=== PATIENT | male | born 1965 | race Caucasian/White ===

== ENCOUNTER 2021-08-12 06:45 | Observation (INO) ==
--- NOTE | 2021-07-15 08:43 | History & Physical Report ---
Date of Service July 15, 2021 date of surgery: 08/12/21 Procedure: Left Total Knee Arthroplasty Surgeon: Shashank Gabriel Assessment & Plan (1) Arthritis of knee, left: Plan: Further care discussed with patient and at this point in time has failed conservative measures and would like to proceed with a left total knee replacement. Plan on discharge will be home with home health physical therapy. DVT prophylaxis with TEDs, SCDs and will also place on aspirin 81 mg p.o. b.i.d. for a month postop. Patient will have follow up appointment in our office two weeks post op for staple/suture removal and re-evaluation. Patient otherwise has no other questions or concerns. The risks and benefits have been discussed including, but not limited to, risk of infection, nerve injury, stiffness, loss of motion, failure to improve, etc. Reasonable outcomes and options of treatment were discussed. An explanation of appropriate alternatives to the procedure that may be advantageous were discussed and their risks and benefits, as well as the risks and benefits of not proceeding with treatment. I offered to answer any additional inquiries concerning the treatment involved. All the patient's questions were answered. The patient is agreeable, understanding of the treatment plan and alternatives, and wishes to proceed with the treatment plan. History of Present Illness Chief Complaint: left knee pain Primary Care Provider: Simran Herrera PA-C Fran is a 55 year old male who complains of left knee pain, presents for pre- op evaluation prior to a left total knee replacement by Dr Gabriel at [facility]. He complains of pain, decreased range of motion and stiffness in his left knee. Currently the patient states that the symptoms are moderate-severe and rated as 8/10. The pain is described as aching, sharp and throbbing. His symptoms are aggravated by ascending stairs, daily activities, first steps while awake wa lking. Prior NSAIDs include Mobic and IBU. He has been treated with previous cortisone and visco injections in the past without much relief. he has also undergone previous left knee arthroscopy with partial medial meniscectomy, chondroplasty medial femoral condyle and removal medial synovial plica in 2017. Allergies Allergy/AdvReac Type Severity Reaction Status Date / Time No Known Allergies Allergy Unverified 02/21/21 14:49 Home Medications Medication Instructions Recorded Confirmed Type allopurinol 300 mg tablet 300 mg PO QAM 02/21/21 02/21/21 History cyclobenzaprine 10 mg tablet 10 mg PO TID PRN 02/21/21 02/21/21 History hydrocodone 5 mg-acetaminophen 325 1 tab PO Q6H PRN 02/21/21 02/21/21 History mg tablet lisinopril 20 mg tablet 20 mg PO QAM 02/21/21 02/21/21 History meloxicam 15 mg tablet 15 mg PO QAM 02/21/21 02/21/21 History pantoprazole 40 mg tablet,delayed 40 mg PO QAM 02/21/21 02/21/21 History release (Protonix) Past Med/Surg History Medical History Diverticulitis and had colon resection GERD (gastroesophageal reflux disease) Pt and report previously well managed with new onset of waking choking at night and when resting watching television, pt reports associated sensation of reflux, denies change in PPI Gout reports onset after previous surgery and hospitalization, last flare > months ago HTN (hypertension) well controlled, stable Osteoarthritis Sleep apnea not using device Surgical History History of colon resection History of nasal surgery septoplasty for deviated septum Hx of appendectomy Hx of arthroscopy of left knee Hx of arthroscopy of right knee x 3 Hx of colonoscopy Hx of melanoma excision right side of ribs Hx of surgical amputation of finger index finger on left hand injury with saw Social History Smoking Status: Never smoker Second Hand Exposure: No; Hx Alcohol Use: Yes Alcohol type: beer Hx Substance Use: No Preferred Language: Guamanian Communication Ability: Effective 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 Beliefs That Will Affect Care: None Current Living Situation: Spouse Feels Safe at Home: Yes Assistive Devices: None Review of Systems Review of Systems: All systems reviewed & are unremarkable except as noted in HPI & below Constitutional: no fever, no chills and no sweats Respiratory: no cough and no dyspnea Cardiovascular: no chest pain, no dyspnea and no orthopnea Gastrointestinal: no abdominal pain, no nausea and no vomiting Musculoskeletal: as per Subjective / HPI Physical Exam Physical Exam: HT: 5ft 11in WT: 124.kg Constitutional: WD/WN, vitals as above no acute distress Respiratory: normal respiratory effort, lungs clear to auscultation no respiratory distress, no labored breathing and does not use accessory muscles Cardiovascular: RRR, no murmur, no edema Gastrointestinal (Abdomen): normal bowel sounds, soft, nontender, no hepatosplenomegaly Musculoskeletal: Knee: + knee abnormal to inspection (LEFT KNEE- ), + effusion (+1 effusion), + surgical incision (well healed portals), + limited ROM of knee (ROM 0/3/110), + knee ROM with crepitation, + joint line tenderness (medial joint line) and + Sapna's sign positive; no deformity, no skin erythema, no ecchymosis, no valgus laxity, no varus laxity, anterior drawer test negative, Harlan's sign negative and pivot shift test negative Results & Data Results & Data ([facility]) Diagnostic Findings Left Knee X-ray: left knee series confirm degenerative changes to the left knee, greatest medial compartments and patellofemoral joint, showing joint space narrowing, osteophyte formation and subchondral sclerosis. no acute bony pathology noted.
--- NOTE | 2021-08-05 10:25 | Anesthesiology Consultation ---
Date of Service August 05, 2021 Assessment & Plan (1) Encounter for pre-operative examination: - COVID screening: Per assessment on 08/05: No known COVID-19 positive contacts or current COVID-19 related symptoms. Travel screen negative. Patient vaccinate d. Surgeon arranging preop COVID testing. Awaiting results. - PCP office visit (07/28/21): "Worsening left knee pain. To go for left TKA in near future. No issues with anesthesia. Not on any thinners. No underlying heart or lung conditions." -Heavy ETOH use: 6 beers/day Chart Review Chart Review: Acceptable Risk for Surgery and Patient NOT seen in Pre Admission Testing History Surgery Operation Date: 08/12/21 11:15 Proposed Procedures p Left Total Knee Arthroplasty - Shashank Gabriel DO Height/Weight Height: 5 ft 11 in Weight: 117.934 kg Allergies Allergy/AdvReac Type Severity Reaction Status Date / Time No Known Allergies Allergy Verified 08/05/21 08:26 Medications Home Medications Medication Instructions Recorded Confirmed Last Taken allopurinol 300 mg tablet 300 mg PO QAM 02/21/21 08/05/21 Unknown cyclobenzaprine 10 mg tablet 10 mg PO TID PRN 02/21/21 08/05/21 Unknown hydrocodone 5 mg-acetaminophen 325 1 tab PO Q6H PRN 02/21/21 08/05/21 Unknown mg tablet lisinopril 20 mg tablet 40 mg PO QAM 02/21/21 08/05/21 Unknown pantoprazole 40 mg tablet,delayed 40 mg PO BID 02/21/21 08/05/21 Unknown release (Protonix) labetalol 100 mg tablet 100 mg PO BID 08/05/21 08/05/21 Unknown nabumetone 500 mg tablet 500 mg PO BID 08/05/21 08/05/21 Unknown Past Medical History Medical History Cancer MELANOMA BACK EXCISION Chronic back pain Diverticulitis Hx/had colon resection GERD (gastroesophageal reflux disease) Gout reports onset after previous surgery and hospitalization, last flare > months ago HTN (hypertension) well controlled, stable Migraine Hx Osteoarthritis Sleep apnea CPAP (now compliant) Pt was seen at [facility] 02/2021 in which patient and mentioned new onset "choking" episodes at night. Patient had CPAP pressures adjusted which resulted in resolution of choking episodes. No recent issues/recurrence. Past Family History Family History Mother Family history of reaction to anesthesia PONV Past Surgical History Surgical History History of colon resection History of esophagogastroduodenoscopy (EGD) History of nasal surgery septoplasty for deviated septum Hx of appendectomy Hx of arthroscopy of left knee Hx of arthroscopy of right knee x 3 Hx of colonoscopy Hx of melanoma excision right side of ribs Hx of surgical amputation of finger index finger on left hand injury with saw Social History Smoking Status: Never smoker Do You Dip or Chew Tobacco: Yes (CHEWS 1 PER 2 DAYS) Hx Alcohol Use: Yes Alcohol type: beer alcohol intake frequency: 3 or more drinks per day Alcohol Intake Frequency Comment: 6 BEER A DAY Hx Substance Use: Yes substance use type: prescription drug Testing Laboratory Results 07/14/21 WBC 9.3 H/H 14.9/43.8 PLATELETS 261 SODIUM 136 POTASSIUM 4.2 CHLORIDE 98 CO2 24 BUN 13 CREATININE 0.96 GLUCOSE 92 HGBA1C 5.8% PT 12.7 PTT 29.2 INR 1.0 UA no bacteria Electrocardiogram Date: 02/24/21 Findings: + NSR @ (83) Chest X-Ray Date: 02/24/21 Findings: + NAD
[~2021-08-12 06:45] MED LIST: ACETAMINOPHEN 500 MG TAB PO SCH; BUPIVACAINE 0.5 % 5 MG/1 ML PF 10ML VIAL ONE; CeleBREX 200 MG CAP PO SCH; FAMOTIDINE 20 MG TAB PO SCH; GABAPENTIN 600 MG DOSE PO SCH; LR 500ML BOLUS, THEN 15ML/HR IV SCH; METOCLOPRAMIDE HCL 10 MG TABLET PO SCH; ROPIVACAINE 0.5% 5 MG/ML 30 ML VIAL ONE; ROPIVACAINE 0.5% HCL/PF 150 MG, BUPIVACAINE 0.75% MPF 20 ML, EPINEPHrine 30MG/30ML (OR ... INSTIL SCH; TRANEXAMIC ACID 1,000 MG **IV Intra-op IV SCH; TRANEXAMIC ACID 1,000 MG **IV Pre-op IV SCH; dexAMETHasone 4 MG TAB PO SCH; oxyCODONE HCL 10 MG TABCR (OxyCONTIN) PO SCH
[2021-08-12] MEDS ORDERED: MIDAZOLAM HCL 1 MG/ML 2ML VIAL ONE (07:38)
[2021-08-12] MEDS ORDERED: PROPOFOL IV EMULSION 10 MG/ML 20 ML VIAL IV ONE ×2 (07:38→10:51)
[2021-08-12] MEDS ORDERED: LIDOCAINE 2% 2 ML VIAL/AMP(20MG/ML) INFIL ONE (07:38)
[2021-08-12] MEDS ORDERED: fentaNYL citrate 100 MCG/2 ML VIAL ONE (07:38)
--- NOTE | 2021-08-12 08:32 | History & Physical Bridge Note ---
Date of Service August 12, 2021 History & Physical Bridge Note I have examined the patient, reviewed the History & Physical and in the interval since the performance of the History & Physical I have noted the following changes of clinical significance: no changes noted
[2021-08-12] MEDS ORDERED: fentaNYL citrate 100 MCG/2 ML VIAL IV PRN (08:44)
[2021-08-12] MEDS ORDERED: ONDANSETRON INJ 2 MG/ML 2 ML VIAL IV PRN ×2 (08:44→13:21)
[2021-08-12] MEDS ORDERED: ATROPINE SULFATE 0.1 MG/ML 10ML SYR IV PRN (08:44)
[2021-08-12] MEDS ORDERED: ePHEDrine sulfate 50 MG/ML AMP IV PRN (08:44)
[2021-08-12] MEDS ORDERED: ORTHO JOINT ANESTHETIC ONE (09:08)
--- NOTE | 2021-08-12 10:48 | Operative Report ---
Post Operative Report Pre & Post Diagnosis Operation Date: 08/12/21 09:05 Pre-Op Diagnosis: Left Knee Osteoarthritis Post-Op Diagnosis: Left Knee Osteoarthritis I identified the patient and participated in the time-out.: Yes Procedure Operation Date: 08/12/21 09:05 Actual Procedures p Left Total Knee Arthroplasty(Left) utilizing [employer] persona patient matched total knee arthroplasty size femur 12 standard tibia each medial constrained polyeleven medial constrained patella 34 oval Shashank Gabriel DO Surgeon Shashank Gabriel DO Brand Representative Enrrique NETTLES Estimated Blood Loss 5 Findings Consistent with Post-Op Diagnosis Patient presents with severe end-stage DJD left knee with varus alignment subchondral sclerosis marginal osteophytes eburnated [id number] moderate to large effusion Specimens Bone and cartilage Drains Medium bore Hemovac Anesthesia Type MAC Spinal Regional Complications none Disposition Accompanied Patient To Recovery: No Disposition: Recovery Room Indications Patient presents with severe end-stage tricompartmental degenerative joint disease of failed attempted conservative management including physical therapy anti-inflammatories relative rest activity modification corticosteroid injection viscosupplementation above intraoperative findings were noted Description of Procedure After proper prepping and draping of the left lower extremity anterior midline incision was made over the region of the extensor extensor mechanism after meticulous hemostasis was obtained and maintained in subcutaneous tissues a medial parapatellar incision was made The patella was subluxed lateralward the medial lateral gutter were cleaned from any hypertrophic synovitis and scar tissue of the distal femoral block was placed and the distal femoral osteotomy cut was made subsequently the chamfers anterior and posterior osteotomy cuts were made utilizing the 4-in-1 block the tibia was subsequently subluxed anteriorward medial and ateral meniscal remnants were excised in their entirety remnants of the anterior and posterior cruciate ligaments were excised in their entirety excellent exposure of the proximal tibia was obtained the tibial osteotomy guide was placed on the proximal tibial osteotomy cut was made once again the knee was irrigated with copious amounts of sterile saline solution the patella was subsequently everted lateralward thickened scar tissue around the patella was removed the patella was subsequently cut utilizing a freehand technique and was drilled prepared for final preparation and placement of patella socially flexion-extension gaps were checked and the equal and symmetric trials were placed to the appropriate femoral and tibial trials with poly-spacer being placed for equal flexion and extension gaps and full range of motion including extension to 0 and flexion to 140 the trial components after having been taken to recovery range of motion was subsequently removed meticulous hemostasis was obtained and maintained subsequently a knee block injection of joint cocktail including ropivacaine 0.5% 150 mg. Bupivacaine 0.5% epinephrine 1-200,030 mL's toradol 30 mg dexamethasone 4 mg ketamine 10 mg clonidine 100 micrograms normal saline solution 30 mg was infiltrated into the soft tissues of the posterior knee medial lateral gutters and periosteal synovium special attention was paid to protect neurovascular structures at all times subsequently trial components having been removed the knee was irrigated with sterile saline solution. debris was removed the proximal tibia was subsequently prepared and was made ready for the placement of the tibial component tibial component was also cemented and tamped into position the femoral component was subsequently placed and cemented in the position the patellar component was subsequently cemented in position because hemostasis once again obtained and maintained wound having been thoroughly irrigated with debridement and debridement lavage was performed as well as a medial parapatellar incision closed with #1 Vicryl in interrupted fashion subcutaneous was closed with #2 Vicryl skin was closed with skin clips. PA-C was necessary for prepping and drapping as well as wound closure of deep fascia Sub cutaneous tissue and skin and was necessary for the case. A sterile compressive dressing was placed patient was taken to recovery in stable condition of report dictated by Harvey I attest to the content of the Intraoperative Record and any orders documented therein. Any exceptions are noted below.Due to the complex nature of the procedure, the entire surgery was performed with the operational assistance of Priyanka NETTLES The culture media laboratory assistant, under direct supervision, was involved in the actual performance of all aspects of the surgical procedure including hemostasis, tissue retraction and incision, instrument management, patient positioning, and wound closure. I attest to the content of the Intraoperative Record and any orders documented therein. Any exceptions are noted below.
--- NOTE | 2021-08-12 12:01 | XRay Report ---
LEFT KNEE 2 VIEWS History: Left total knee arthroplasty. Degenerative arthritis. Postop. FINDINGS: The patient is status post a left total knee arthroplasty. The hardware is intact. No fract ure or dislocation. Surgical drains are in place. IMPRESSION: Left total knee arthroplasty. No evidence for hardware complication. ACT 112: Negative or not required by law. Electronically signed by: Nathaniel Aguilar M.D. 08/12/2021 12:00 PM
--- NOTE | 2021-08-12 12:16 | Anesthesiology Progress Note ---
Date of Service August 12, 2021 Anesthesia Post Procedure Vital Signs Vital Signs: Temp Pulse Pulse Resp BP Pulse Ox 08/12/21 12:05 97.5 F L 64 16 158/94 H 94 08/12/21 11:55 65 18 149/82 H 96 08/12/21 11:45 63 17 160/87 H 99 08/12/21 11:35 67 17 135/92 99 08/12/21 11:27 99.0 F 74 21 136/86 99 08/12/21 07:11 98.8 F 82 20 170/102 H 97 Pain Intensity Left Knee: Pain Intensity: 7 Transfer of Care Handoff Completed per policy Notes Mental Status: alert / awake / arousable and participated in evaluation Patient Amnestic to Procedure: Yes Nausea / Vomiting: adequately controlled Pain: adequately controlled Airway Patency, RR, SpO2: stable & adequate BP & HR: stable & adequate Hydration State: stable & adequate Neuraxial Anesthesia: was administered and sensory block is resolving Anesthetic Complications: no major complications apparent and Pt Satisfied with anesthetic care
[2021-08-12] MEDS ORDERED: bisacodyL 10 MG SUPP PR PRN (13:21)
[2021-08-12] MEDS ORDERED: MAGNESIUM HYDROXIDE SUSP 30 ML UDC PO PRN (13:21)
[2021-08-12] MEDS ORDERED: diphenhydrAMINE 50 MG/ML VIAL IV PRN (13:21)
[2021-08-12] MEDS ORDERED: NALOXONE HCL 0.4 MG/1 ML VIAL/CARP IV PRN (13:21)
[2021-08-12] MEDS: SODIUM CHLORIDE 0.9% 1000ML 1,000 ML IV SCH (14:08)
[2021-08-12] MEDS: HYDROCODONE/ACETAMOPHEN 5/325MG TAB PO PRN ×3 (14:09→22:00)
[2021-08-12] MEDS: ceFAZolin 2000MG 2,000 MG/15 ML SYR IV SCH (16:47)
[2021-08-12] MEDS: HYDROmorphone INJ 0.5 MG/0.5 ML SYR IV PRN (20:11)
[2021-08-12] MEDS ORDERED: SENNA 8.6 MG TAB PO SCH (21:00)
[2021-08-12] MEDS: LABETALOL HCL 100 MG TAB PO SCH (21:14)
[2021-08-12] MEDS: PANTOprazole 40 MG TAB PO SCH (21:14)
[2021-08-12] MEDS: ASPIRIN 81 MG ECTAB PO SCH (21:14)
[2021-08-12] MEDS: DOCUSATE SODIUM 100 MG CAP PO SCH (21:14)
[2021-08-13] MEDS: ceFAZolin 2000MG 2,000 MG/15 ML SYR IV SCH (01:10)
[2021-08-13] MEDS: HYDROmorphone INJ 0.5 MG/0.5 ML SYR IV PRN (01:20)
[2021-08-13] MEDS: SODIUM CHLORIDE 0.9% 1000ML 1,000 ML IV SCH (01:31)
[2021-08-13] MEDS: HYDROCODONE/ACETAMOPHEN 5/325MG TAB PO PRN ×2 (05:23→10:34)
[2021-08-13 05:51] LABS: Hemoglobin 11.9 g/dL (14.0-18.0); Mean Corpuscular Hemoglobin 31.8 pg (25-34); Mean Corpuscular Volume 90.9 fL (80-100); Mean Platelet Volume 10.1 fL (7.4-10.4); Platelet Count 242 K/uL (130-400); RDW Coefficient of Variation 12.7 % (11.5-14.5); Red Blood Count 3.74 M/uL (4.7-6.1); White Blood Count 13.83 K/uL (4.8-10.8)
[2021-08-13 06:28] LABS: BUN Creatinine Ratio 15.5 (10-20); Calcium 8.7 mg/dl (8.5-10.1); Creatinine Clr Calc Pharmacy 130.8 ml/min; Est GFR (African American) 113.4 ml/min; Est GFR (Non-African American) 97.9 ml/min; Potassium 4.1 mmol/L (3.5-5.1)
[2021-08-13] MEDS: DOCUSATE SODIUM 100 MG CAP PO SCH (07:59)
[2021-08-13] MEDS: ASPIRIN 81 MG ECTAB PO SCH (07:59)
[2021-08-13] MEDS: PANTOprazole 40 MG TAB PO SCH (07:59)
[2021-08-13] MEDS: LABETALOL HCL 100 MG TAB PO SCH (07:59)
--- NOTE | 2021-08-13 08:23 | Orthopedic Progress Note ---
Date of Service August 13, 2021 Assessment & Plan (1) Arthritis of knee, left: Plan: Postop day 1 status post left total knee arthroplasty. PT/OT protocols. Weightbearing as tolerated. DVT prophylaxis-aspirin p.o. twice daily, YUKI Sullivan. Pain management as written. DC planning-plan for discharge to home today. Admission and Anticipated Discharge Date Admission Date: August 12, 2021 Subjective Postop day 1 Patient lying in bed doing his bedside exercises. Minimal discomfort this morning. Pain controlled with pain meds. Denies shortness of breath, chest pain, lightheadedness. Physical Exam Physical Exam: Dressings are clean, dry, and intact. Calves are soft and nontender. Neurovascular is intact. Toes are mobile. He has good dorsiflexion and plantarflexion of the left foot. Hemovac drainage was 50 mL from the previous shift. Results & Data ([facility]) Vital Signs (Past 12 Hours) Vital Signs Temp Pulse Pulse Resp BP Pulse Ox 08/13/21 08:00 34.9 C L 88 20 154/98 H 100 08/13/21 03:15 36.5 C 84 16 145/83 H 97 08/12/21 23:02 36.7 C 93 H 20 135/87 94 Laboratory Results Laboratory Results WBC 13.83 K/uL (4.8-10.8) H 08/13/21 05:24 RBC 3.74 M/uL (4.7-6.1) L 08/13/21 05:24 Hgb 11.9 g/dL (14.0-18.0) L 08/13/21 05:24 Hct 34.0 % (42-52) L 08/13/21 05:24 MCV 90.9 fL (80-100) 08/13/21 05:24 MCH 31.8 pg (25-34) 08/13/21 05:24 MCHC 35.0 g/dL (32-36) 08/13/21 05:24 RDW Std Deviation 42.0 fL (36.4-46.3) 08/13/21 05:24 RDW Coeff of Abdoulaye 12.7 % (11.5-14.5) 08/13/21 05:24 Plt Count 242 K/uL (130-400) 08/13/21 05:24 MPV 10.1 fL (7.4-10.4) 08/13/21 05:24 Sodium 136 mmol/L (136-145) 08/13/21 05:24 Potassium 4.1 mmol/L (3.5-5.1) 08/13/21 05:24 Chloride 104 mmol/L (98-107) 08/13/21 05:24 Carbon Dioxide 22 mmol/L (21-32) 08/13/21 05:24 Anion Gap 10 (3-11) 08/13/21 05:24 BUN 13 mg/dl (6-23) 08/13/21 05:24 Creatinine 0.84 mg/dl (0.6-1.4) 08/13/21 05:24 Est Cr Clr Drug Dosing 130.8 ml/min 08/13/21 05:24 Est GFR ( Amer) 113.4 ml/min 08/13/21 05:24 Est GFR (Non-Af Amer) 97.9 ml/min 08/13/21 05:24 BUN/Creatinine Ratio 15.5 (10-20) 08/13/21 05:24 Glucose 138 mg/dl (70-99(Fasting)) H 08/13/21 05:24 Calcium 8.7 mg/dl (8.5-10.1) 08/13/21 05:24 SARS-CoV-2, RNA, NAAT NEGATIVE (NEGATIVE) 08/12/21 Unknown Blood Type B Positive 08/12/21 07:02 Antibody Screen NEGATIVE 08/12/21 07:02 Impressions Knee X-Ray 08/12/21 11:36 LEFT KNEE 2 VIEWS History: Left total knee arthroplasty. Degenerative arthritis. Postop. FINDINGS: The patient is status post a left total knee arthroplasty. The hardware is intact. No fracture or dislocation. Surgical drains are in place. IMPRESSION: Left total knee arthroplasty. No evidence for hardware complication. ACT 112: Negative or not required by law. Electronically signed by: Nathaniel Aguilar M.D. 08/12/2021 12:00 PM
[2021-08-13] MEDS ORDERED: lisinopril 40 MG TAB PO SCH (09:00)
[2021-08-13] MEDS ORDERED: MULTIVITAMIN TAB PO SCH (09:00)
[2021-08-13] MEDS ORDERED: allopurinoL 300 MG TAB PO SCH (09:00)
--- NOTE | 2021-08-14 14:30 | Discharge Summary ---
Date of Service August 14, 2021 Admission HPI Per Admitting Provider Fran is a 55 year old male who complains of left knee pain, presents for pre- op evaluation prior to a left total knee replacement by Dr Gabriel at [facility]. He complains of pain, decreased range of motion and stiffness in his left knee. Currently the patient states that the symptoms are moderate-severe and rated as 8/10. The pain is described as aching, sharp and throbbing. His symptoms are aggravated by ascending stairs, daily activities, first steps while awake walking. Prior NSAIDs include Mobic and IBU. He has been treated with previous cortisone and visco injections in the past without much relief. he has also undergone previous left knee arthroscopy with partial medial meniscectomy, chondroplasty medial femoral condyle and removal medial synovial plica in 2017. Admission Exam Per Admitting Provider Physical Exam: HT: 5ft 11in WT: 124.kg Constitutional: WD/WN, vitals as above no acute distress Respiratory: normal respiratory effort, lungs clear to auscultation no respiratory distress, no labored breathing and does not use accessory muscles Cardiovascular: RRR, no murmur, no edema Gastrointestinal (Abdomen): normal bowel sounds, soft, nontender, no hepatosplenomegaly Musculoskeletal: Knee: + knee abnormal to inspection (LEFT KNEE- ), + effusion (+1 effusion), + surgical incision (well healed portals), + limited ROM of knee (ROM 0/3/110), + knee ROM with crepitation, + joint line tenderness (medial joint line) and + Sapna's sign positive; no deformity, no skin erythema, no ecchymosis, no valgus laxity, no varus laxity, anterior drawer test negative, Harlan's sign negative and pivot shift test negative Principal Diagnosis Left knee osteoarthritis Discharge Data Allergies Allergy/AdvReac Type Severity Reaction Status Date / Time No Known Allergies Allergy Verified 08/12/21 07:05 Procedures Performed Operation Date: 08/12/21 09:05 Actual Procedures p Left Total Knee Arthroplasty(Left) - Shashank Gabriel DO Ordered Studies 08/12/21 05:00 US - OR guided needle placemen Routine Hospital Course (1) Arthritis of knee, left: Patient:FRAN HOLLINS Admit Date:08/12/21 MR#:[id number] Att Phy:Shashank Gabriel D.O. Acct ID:[id number] [facility] Phy:Simran Herrera PA-C Date:1965 [facility] Phy: Age:55 Location:3E Sex:M Room/Bed:E3-1 cc: ~ *NOTICE TO RECEIVING GREEN PARTY/AGENCY This information is strictly Confidential and protected under [place] law. [place] law prohibits you from making any further disclosure of this information unless further disclosure is expressly permitted by the written consent of the person to whom it pertains or is authorized by law. A general authorization for the release of medical or other information is not sufficient for this purpose. Hospital accepts no responsibility if the information is made available to any other person, INCLUDING THE PATIENT. Date of Service August 13, 2021 Assessment & Plan (1) Arthritis of knee, left: Plan: Postop day 1 status post left total knee arthroplasty. PT/OT protocols. Weightbearing as tolerated. DVT prophylaxis-aspirin p.o. twice daily, SCDsYUKI. Pain management as written. DC planning-plan for discharge to home today. Admission and Anticipated Discharge Date Admission Date: August 12, 2021 Subjective Postop day 1 Patient lying in bed doing his bedside exercises. Minimal discomfort this morning. Pain controlled with pain meds. Denies shortness of breath, chest pain, lightheadedness. Physical Exam Physical Exam: Dressings are clean, dry, and intact. Calves are soft and nontender. Neurovascular is intact. Toes are mobile. He has good dorsiflexion and plantarflexion of the left foot. Hemovac drainage was 50 mL from the previous shift. Results & Data ([facility]) Vital Signs (Past 12 Hours) Vital Signs Temp Pulse Pulse Resp BP Pulse Ox 08/13/21 08:00 34.9 C L 88 20 154/98 H 100 08/13/21 03:15 36.5 C 84 16 145/83 H 97 08/12/21 23:02 36.7 C 93 H 20 135/87 94 Laboratory Results Laboratory Results WBC 13.83 K/uL (4.8-10.8) H 08/13/21 05:24 RBC 3.74 M/uL (4.7-6.1) L 08/13/21 05:24 Hgb 11.9 g/dL (14.0-18.0) L 08/13/21 05:24 Hct 34.0 % (42-52) L 08/13/21 05:24 MCV 90.9 fL (80-100) 08/13/21 05:24 MCH 31.8 pg (25-34) 08/13/21 05:24 MCHC 35.0 g/dL (32-36) 08/13/21 05:24 RDW Std Deviation 42.0 fL (36.4-46.3) 08/13/21 05:24 RDW Coeff of Abdoulaye 12.7 % (11.5-14.5) 08/13/21 05:24 Plt Count 242 K/uL (130-400) 08/13/21 05:24 MPV 10.1 fL (7.4-10.4) 08/13/21 05:24 Sodium 136 mmol/L (136-145) 08/13/21 05:24 Potassium 4.1 mmol/L (3.5-5.1) 08/13/21 05:24 Chloride 104 mmol/L (98-107) 08/13/21 05:24 Carbon Dioxide 22 mmol/L (21-32) 08/13/21 05:24 Anion Gap 10 (3-11) 08/13/21 05:24 BUN 13 mg/dl (6-23) 08/13/21 05:24 Creatinine 0.84 mg/dl (0.6-1.4) 08/13/21 05:24 Est Cr Clr Drug Dosing 130.8 ml/min 08/13/21 05:24 Est GFR ( Amer) 113.4 ml/min 08/13/21 05:24 Est GFR (Non-Af Amer) 97.9 ml/min 08/13/21 05:24 BUN/Creatinine Ratio 15.5 (10-20) 08/13/21 05:24 Glucose 138 mg/dl (70-99(Fasting)) H 08/13/21 05:24 Calcium 8.7 mg/dl (8.5-10.1) 08/13/21 05:24 SARS-CoV-2, RNA, NAAT NEGATIVE (NEGATIVE) 08/12/21 Unknown Blood Type B Positive 08/12/21 07:02 Antibody Screen NEGATIVE 08/12/21 07:02 Impressions Knee X-Ray 08/12/21 11:36 LEFT KNEE 2 VIEWS History: Left total knee arthroplasty. Degenerative arthritis. Postop. FINDINGS: The patient is status post a left total knee arthroplasty. The hardware is intact. No fracture or dislocation. Surgical drains are in place. IMPRESSION: Left total knee arthroplasty. No evidence for hardware complication. ACT 112: Negative or not required by law. Electronically signed by: Nathaniel Aguilar M.D. 08/12/2021 12:00 PM Total Time Total Time Spent Total Time Spent (In Minutes): 5 Discharge Plan Discharge Items Patient Disposition: Home - Home Health Services Reason For Visit: Left Knee Osteoarthritis Discharge Diagnosis: Left Knee Osteoarthritis Activity: Per Instructions section Weightbearing: Left weightbearing Weightbearing Comment: as tolerated with walker Non-emergency contact: Surgeon Call non-emergency contact if: your pain is not controlled, your temperature is above 101.5, your wound has increased redness and your wound has increased drainage Follow-up/Referrals: Shashank Gabriel DO [Surgeon] - (Follow up in 14 days from the day of surgery for your first post operative check up) Simran Herrera PA-C [Primary Care Provider] - Diet: Regular Addtl Attending Provider Instructions: ACTIVITY RECOMMENDATIONS: SELF CARE INSTRUCTIONS AFTER TOTAL KNEE REPLACEMENT A. You may need to continue a physical therapy program after discharge from the hospital. There are several options available to you. Your doctor will assist you in selecting the best one for you. 1. An out-patient facility 2 to 3 times a week for therapy or home therapy. 2. Continue working on all exercises taught to you in the hospital. Your goals should be to increase bending of your knee to 90 degrees and beyond and to fully straighten your knee. B. You may progress at your own pace from walking with a walker or crutches to a cane; then to no assistive devices. C. Make walking a part of your daily routine. Be up as much as comfortable with rest periods throughout the day. Rest with leg elevation is very important. Use the ice wrap frequently for the first 3-4 weeks. D. There are no restrictions on activities. You may ride in a car, shop, participate in ldr rn and all social activities. E. Wear the long elastic stockings (YUKI hose) 20 hours a day for 2 weeks after surgery. They can be removed several times a day for laundering and for a bath. F. You may shower, no tub baths until cleared by your doctor. SPECIAL CARE INSTRUCTIONS: VERY IMPORTANT TO READ AND REVIEW A. There are a few signs you need to watch for after you are home. Call [facility] if you notice any of the followin. Increased severe knee pain. Some pain is expected especially when you exercise. 2. Increased swelling in your leg or knee; pain or swelling of the calf muscle in either lower leg. 3. Any fluid drainage from the incision. 4. Shortness of breath or chest pain. B. Please call [facility] at if you have any concerns or questions about your operation or recovery. The doctor or his nurse will return your call promptly. C. You must take antibiotics before dental work, bladder, bowel or other surgery. Your doctor will provide you with a permanent care to carry describing this precaution. IMPORTANT: * REMEMBER TO TAKE ASPIRIN, 81 MG, TWICE DAILY FOR 4 WEEKS UNLESS OTHERWISE DIRECTED. THIS IS YOUR BLOOD THINNER. * CALL IF INCREASED PAIN, REDNESS, DRAINAGE OR FEVER GREATER THAT 101. * WEAR YUKI HOSE 20 HOURS PER DAY FOR 2 WEEKS. * DONNA Dressing - This is a large suction dressing covering your incision. This will help pull any excess drainage from the wound and allow your incision to heal properly. You may shower with this if you can keep the unit outside of the shower. If any bleeding or leakage is noted please call your doctor's office. This will remain on your incision for 7 days and then should be removed. This can be done yourself or by the home nursing staff if applicable. The entire unit is disposable once removed. Once removed, keep incision clean and dry. If redness or drainage is noted, please call your surgeon. . FOLLOW UP VISIT: If appointment is not already scheduled: Please call [facility] to make a follow-up appointment for 2 weeks after your surgery at . Stand-Alone Forms: My eoSemi, Opioid Pain Management, Smoking Cessation Medications and DC Order Prescriptions: New aspirin 81 mg Tablet,Delayed Release (Dr/Ec) 81 mg PO BID 30 Days Qty: 60 RF: 0 polyethylene glycol 3350 [Miralax] 17 gram powder in packet 17 g PO DAILY PRN (Reason: constipation) Qty: 5 RF: 0 cefadroxil 500 mg capsule 500 mg PO BID Qty: 14 RF: 0 hydrocodone-acetaminophen 5-325 mg tablet 1 - 2 tab PO Q6H MDD 8 tabs PRN (Reason: pain) Qty: 30 RF: 0 Continued cyclobenzaprine 10 mg Tablet 10 mg PO TID PRN (Reason: Muscle Pain) RF: 0 lisinopril 20 mg Tablet 40 mg PO QAM RF: 0 pantoprazole [Protonix] 40 mg Tablet,Delayed Release (Dr/Ec) 40 mg PO BID RF: 0 allopurinol 300 mg Tablet 300 mg PO QAM RF: 0 labetalol 100 mg Tablet 100 mg PO BID RF: 0 Discontinued hydrocodone-acetaminophen 5-325 mg Tablet 1 tab PO Q6H PRN (Reason: Pain) RF: 0 nabumetone [Relafen] 500 mg Tablet 500 mg PO BID RF: 0 Discharge Orders: Discharge Order (Routine); Ordered 08/13/21 Ordered By: Enrrique Chávez Admission Data Admit Date/Time: 08/12/21 11:36 Attending Provider: Shashank Gabriel Admit Provider: Shashank Gabriel Primary Care Provider: Simran Herrera Other Providers: [facility],Home Health Other Interventions: Discharge Summary Assessment (RN) Last Done: 08/13/21 11:40
== END 2021-08-13 13:57 | disposition home health service (06) ==
LOC: ASU 06:45 → 3E 06:45

== ENCOUNTER 2022-02-03 09:41 | Inpatient (IN) ==
--- NOTE | 2021-12-02 12:07 | History & Physical Report ---
Date of Service December 02, 2021 date of surgery: 12/31/21 Procedure: Right Total Knee Arthroplasty, possible removal ACL screws Surgeon: Shashank Gabriel Assessment & Plan (1) Arthritis of right knee: Plan: Further care discussed with patient and at this point in time has failed conservative measures and would like to proceed with a right total knee replacement. Plan on discharge will be home with home health physical therapy. DVT prophylaxis with TEDs, SCDs and will also place on aspirin 81 mg p.o. b.i.d. for a month postop. Patient will have follow up appointment in our office two weeks post op for staple/suture removal and re-evaluation. Patient otherwise has no other questions or concerns. The risks and benefits have been discussed including, but not limited to, risk of infection, nerve injury, stiffness, loss of motion, failure to improve, etc. Reasonable outcomes and options of treatment were discussed. An explanation of appropriate alternatives to the procedure that may be advantageous were discussed and their risks and benefits, as well as the risks and benefits of not proceeding with treatment. I offered to answer any additional inquiries concerning the treatment involved. All the patient's questions were answered. The patient is agreeable, understanding of the treatment plan and alternatives, and wishes to proceed with the treatment plan. History of Present Illness Chief Complaint: Right knee pain Primary Care Provider: Simran Herrera PA-C Fran is a 56 year old male who complains of Right knee pain, presents for pre-op evaluation prior to a right total knee replacement by Dr Gabriel at [facility]. He complains of pain and stiffness in his right knee. Currently the patient stat es that the symptoms are moderate-severe and rated as 6/10. The pain is described as aching and sharp. His symptoms are aggravated by ascending stairs, daily activities, first steps while awake walking. Prior NSAIDs include Mobic and IBU. He has been treated with previous cortisone and visco injections in the past without much relief. has history of right knee scope x 3 with h/o ACL reconstruction. Allergies Allergy/AdvReac Type Severity Reaction Status Date / Time No Known Allergies Allergy Verified 08/12/21 07:05 Home Medications Medication Instructions Recorded Confirmed Type allopurinol 300 mg tablet 300 mg PO QAM 02/21/21 08/12/21 History cyclobenzaprine 10 mg tablet 10 mg PO TID PRN Muscle Pain 02/21/21 08/12/21 History lisinopril 20 mg tablet 40 mg PO QAM 02/21/21 08/12/21 History pantoprazole 40 mg tablet,delayed 40 mg PO BID 02/21/21 08/12/21 History release (Protonix) labetalol 100 mg tablet 100 mg PO BID 08/05/21 08/12/21 History cefadroxil 500 mg capsule 500 mg PO BID #14 caps 08/13/21 Rx hydrocodone 5 mg-acetaminophen 325 1 - 2 tab PO Q6H PRN pain #30 tabs 08/13/21 Rx mg tablet polyethylene glycol 3350 17 gram 17 g PO DAILY PRN constipation #5 08/13/21 Rx oral powder packet (Miralax) ea Past Med/Surg History Medical History Cancer MELANOMA BACK EXCISION Chronic back pain Diverticulitis Hx/had colon resection GERD (gastroesophageal reflux disease) Gout reports onset after previous surgery and hospitalization, last flare > months ago HTN (hypertension) well controlled, stable Migraine Hx Osteoarthritis Sleep apnea CPAP (now compliant) Pt was seen at [facility] 02/2021 in which patient and mentioned new onset "choking" episodes at night. Patient had CPAP pressures adjusted which resulted in resolution of choking episodes. No recent issues/recurrence. Surgical History History of colon resection History of esophagogastroduodenoscopy (EGD) History of nasal surgery septoplasty for deviated septum Hx of appendectomy Hx of arthroscopy of left knee Hx of arthroscopy of right knee x 3 Hx of colonoscopy Hx of melanoma excision right side of ribs Hx of surgical amputation of finger index finger on left hand injury with saw Family History Mother Family history of reaction to anesthesia PONV Social History Smoking Status: Never smoker Second Hand Exposure: No; Hx Alcohol Use: Yes Alcohol type: beer Hx Substance Use: Yes Preferred Language: Kyrgyz Communication Ability: Effective Color Repairer Required: No Beliefs That Will Affect Care: None Current Living Situation: Spouse current occupational status: employed current occupation: [employer] Feels Safe at Home: Yes Assistive Devices: CPAP and Walker Review of Systems Review of Systems: All systems reviewed & are unremarkable except as noted in HPI & below Constitutional: no fever, no chills and no sweats Respiratory: no cough and no dyspnea Cardiovascular: no chest pain, no dyspnea and no orthopnea Gastrointestinal: no abdominal pain, no nausea and no vomiting Musculoskeletal: as per Subjective / HPI Physical Exam Constitutional: WD/WN, vitals as above no acute distress Respiratory: normal respiratory effort, lungs clear to auscultation no respiratory distress, no labored breathing and does not use accessory muscles Cardiovascular: RRR, no murmur, no edema Gastrointestinal (Abdomen): normal bowel sounds, soft, nontender, no hepatosplenomegaly Musculoskeletal: Knee: + knee abnormal to inspection (RIGHT KNEE), + effusion (+1 effusion), + limited ROM of knee (ROM 0/3/110), + knee ROM with crepitation, + joint line tenderness (medial joint line) and + Sapna's sign positive; no deformity, no skin erythema, no ecchymosis, no valgus laxity, no varus laxity, anterior drawer test negative, Harlan's sign negative and pivot shift test negative Results & Data Results & Data ([facility]) Diagnostic Findings Right Knee X-ray: Right knee series showing advanced degenerative changes to the right knee, narrowing of the medial compartment and patello-femoral joint with patellar spurring noted, findings showing joint space narrowing of the medial compartment and patello-femoral joint, osteophyte formation and subchondral sclerosis noted. overall varus alignment. 2 metallic screws from prior ACL reconstruction. no acute bony pathology noted.
--- NOTE | 2021-12-24 14:27 | Anesthesiology Consultation ---
Date of Service December 24, 2021 Assessment & Plan (1) Encounter for pre-operative examination: Plan - abnormal echocardiogram: awaiting additional details/records from patient/PCP/[facility] Roberto Carlos regarding encounter prompting echocardiogram, will then forward to provider for pre-op optimization determination per discussion with Dr. Emmanuel. Message left requesting pt return call. - heavy ETOH use: 6 beers/day. - s/p L TKA 08/12/21: SAB at L3-L4 1 attempt + PNB. - Outpatient joint assessment: Patient is currently scheduled for inpatient pathway. If re-evaluated pending system levels during current pandemic/surgeon requests outpatient pathway, patient is NOT recommended candidate for outpatient joint program from anesthesia standpoint. - COVID screening: Per curriculum and assessment director on 12/22/2021: Travel screen negative, no known COVID-19 positive contacts or current COVID-19 related symptoms in past 2 weeks. Pt vaccinated. To surgeon's discretion if preop COVID testing needed. Chart Review Chart Review: Pending: Refer to Additional Notes / Consult section and Patient NOT seen in Pre Admission Testing History Surgery Operation Date: 12/31/21 10:30 Proposed Procedures p Right Total Knee Arthroplasty, Possible Removal of Anterior Cruciate Ligament Screws - Shashank Gabriel, Height/Weight Height: 5 ft 11 in Weight: 117.934 kg Allergies Allergy/AdvReac Type Severity Reaction Status Date / Time No Known Allergies Allergy Verified 12/22/21 15:35 Medications Home Medications Medication Instructions Recorded Confirmed Last Taken allopurinol 300 mg tablet 300 mg PO QAM 02/21/21 12/22/21 08/12/21 05:00 cyclobenzaprine 10 mg tablet 10 mg PO TID PRN Muscle Pain 02/21/21 12/22/21 08/11/21 13:00 pantoprazole 40 mg tablet,delayed 40 mg PO BID 02/21/21 12/22/21 08/12/21 05:00 release (Protonix) gabapentin 300 mg capsule 300 mg PO HS 12/22/21 12/22/21 Unknown lisinopril 40 mg tablet 40 mg PO QAM 12/22/21 12/22/21 Unknown montelukast 10 mg tablet 10 mg PO QPM 12/22/21 12/22/21 Unknown Past Medical History Medical History Chronic back pain Diverticulitis Hx/had colon resection GERD (gastroesophageal reflux disease) History of COVID-19 09/05/21>[facility] [facility] ONLY *RESOLVED/HOME TEST HTN (hypertension) Hx of gout Hx of migraines Osteoarthritis Sleep apnea CPAP Past Family History Family History Mother Family history of reaction to anesthesia PONV Past Surgical History Surgical History History of colon resection History of esophagogastroduodenoscopy (EGD) History of nasal surgery septoplasty for deviated septum History of total knee replacement LEFT TKA Hx of appendectomy Hx of arthroscopy of left knee Hx of arthroscopy of right knee x 3 Hx of colonoscopy Hx of melanoma excision right side of ribs Hx of melanoma excision Hx of surgical amputation of finger index finger on left hand injury with saw Social History Smoking Status: Never smoker tobacco type: smokeless tobacco Do You Dip or Chew Tobacco: Yes (ADVISED NPO) Hx Alcohol Use: Yes Alcohol type: beer alcohol intake frequency: 3 or more drinks per day Alcohol Intake Frequency Comment: 6 BEERS DAILY Hx Substance Use: Yes substance use type: does not use Testing Laboratory Results 12/15/2021 WBC: 5.7 H/H: 13/ PLATELETS: 250 SODIUM: 134 POTASSIUM: 4.3 CHLORIDE: 98 CO2: 23 BUN: 7 CREATININE: 0.8 GLUCOSE: 79 PT: 13 INR: 1 UA: yellow clear, specific gravity 1.005, negative for bacteria A1c: 6.1% Electrocardiogram Date: 02/24/21 NSR, rate 83 bpm Chest X-Ray Date: 02/24/21 No acute cardiopulmonary findings Echocardiogram Date: 12/04/21 Technically difficult study EF 55-60% Abnormal septal motion consistent with abnormal electrical activation Thickened aortic valve, JACLYN 3.5 cm2 and mean gradient 3.5 mmHg Mildly dilated aortic root Grade I diastolic dysfunction Dilated inferior vena cava, consistent with increased right atrial pressure
--- NOTE | 2022-01-01 07:44 | History & Physical Report ---
Date of Service January 01, 2022 date of surgery: 01/20/22 Procedure: Right Total Knee Arthroplasty, Possible Removal of Anterior Cruciate Ligament Screws Surgeon: Shashank Gabriel Assessment & Plan (1) Arthritis of right knee: Plan: Further care discussed with patient and at this point in time has failed conservative measures and would like to proceed with a right total knee replacement. Plan on discharge will be home with home health physical therapy. DVT prophylaxis with TEDs, SCDs and will also place on aspirin 81 mg p.o. b.i.d. for a month postop. Patient will have follow up appointment in our office two weeks post op for staple/suture removal and re-evaluation. Patient otherwise has no other questions or concerns. Surgery was recently postponed from 12/31 due to diagnosed with COVID. The risks and benefits have been discussed including, but not limited to, risk of infection, nerve injury, stiffness, loss of motion, failure to improve, etc. Reasonable outcomes and options of treatment were discussed. An explanation of appropriate alternatives to the procedure that may be advantageous were discussed and their risks and benefits, as well as the risks and benefits of not proceeding with treatment. I offered to answer any additional inquiries concerning the treatment involved. All the patient's questions were answered. The patient is agreeable, understanding of the treatment plan and alternatives, and wishes to proceed with the treatment plan. History of Present Illness Chief Complaint: right knee pain Primary Care Provider: Simran Herrera PA-C Fran is a 56 year old male who complains of Right knee pain, presents for pre-op evaluation prior to a right total knee replacement by Dr Gabriel at [facility]. He complains of pain and stiffness in his right knee. Currently the patient states that the symptoms are moderate-severe and rated as 6/10. The pain is described as aching and sharp. His symptoms are aggravated by ascending stairs, daily activities, first steps while awake walking. Prior NSAIDs include Mobic and IBU. He has been treated with previous cortisone and visco injections in the past without much relief. has history of right knee scope x 3 with h/o ACL reconstruction. Allergies Allergy/AdvReac Type Severity Reaction Status Date / Time No Known Allergies Allergy Verified 12/22/21 15:35 Home Medications Medication Instructions Recorded Confirmed Type allopurinol 300 mg tablet 300 mg PO QAM 02/21/21 12/22/21 History cyclobenzaprine 10 mg tablet 10 mg PO TID PRN Muscle Pain 02/21/21 12/22/21 History pantoprazole 40 mg tablet,delayed 40 mg PO BID 02/21/21 12/22/21 History release (Protonix) gabapentin 300 mg capsule 300 mg PO HS 12/22/21 12/22/21 History lisinopril 40 mg tablet 40 mg PO QAM 12/22/21 12/22/21 History montelukast 10 mg tablet 10 mg PO QPM 12/22/21 12/22/21 History Past Med/Surg History Medical History Chronic back pain Diverticulitis Hx/had colon resection GERD (gastroesophageal reflux disease) History of COVID-19 09/05/21>RUNNY NOSE ONLY *RESOLVED/HOME TEST HTN (hypertension) Hx of gout Hx of migraines Osteoarthritis Sleep apnea CPAP Surgical History History of colon resection History of esophagogastroduodenoscopy (EGD) History of nasal surgery septoplasty for deviated septum History of total knee replacement LEFT TKA Hx of appendectomy Hx of arthroscopy of left knee Hx of arthroscopy of right knee x 3 Hx of colonoscopy Hx of melanoma excision right side of ribs Hx of melanoma excision Hx of surgical amputation of finger index finger on left hand injury with saw Family History Mother Family history of reaction to anesthesia PONV Social History Smoking Status: Never smoker Second Hand Exposure: No; Hx Alcohol Use: Yes Alcohol type: beer Hx Substance Use: Yes Preferred Language: Icelandic Communication Ability: Effective 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 Beliefs That Will Affect Care: None Current Living Situation: Spouse current occupational status: employed current occupation: [employer] Feels Safe at Home: Yes Assistive Devices: CPAP Review of Systems Constitutional: no fever, no chills and no sweats Respiratory: no cough and no dyspnea Cardiovascular: no chest pain, no dyspnea and no orthopnea Gastrointestinal: no abdominal pain, no nausea and no vomiting Musculoskeletal: as per Subjective / HPI Physical Exam Constitutional: WD/WN, vitals as above no acute distress Respiratory: normal respiratory effort, lungs clear to auscultation no respiratory distress, no labored breathing and does not use accessory muscles Cardiovascular: RRR, no murmur, no edema Gastrointestinal (Abdomen): normal bowel sounds, soft, nontender, no hepatosplenomegaly Musculoskeletal: Knee: + knee abnormal to inspection (RIGHT KNEE), + effusion (+1 effusion), + limited ROM of knee (ROM 0/3/110), + knee ROM with crepitation, + joint line tenderness (medial joint line) and + Sapna's sign positive; no deformity, no skin erythema, no ecchymosis, no valgus laxity, no varus laxity, anterior drawer test negative, Harlan's sign negative and pivot shift test negative Results & Data Results & Data ([facility]) Diagnostic Findings Right Knee X-ray: Right knee series showing advanced degenerative changes to the right knee, narrowing of the medial compartment and patello-femoral joint with patellar spurring noted, findings showing joint space narrowing of the medial compartment and patello-femoral joint, osteophyte formation and subchondral sclerosis noted. overall varus alignment. 2 metallic screws from prior ACL reconstruction. no acute bony pathology noted.
--- NOTE | 2022-01-23 08:14 | History & Physical Report ---
Date of Service January 23, 2022 date of surgery: 02/03/22 Procedure: Right Total Knee Arthroplasty, Possible Removal of Anterior Cruciate Ligament Screws Surgeon: Shashank Gabriel Assessment & Plan (1) Arthritis of right knee: Plan: Further care discussed with patient and at this point in time has failed conservative measures and would like to proceed with a right total knee replacement. Plan on discharge will be home with home health physical therapy. DVT prophylaxis with TEDs, SCDs and will also place on aspirin 81 mg p.o. b.i.d. for a month postop. Patient will have follow up appointment in our office two weeks post op for staple/suture removal and re-evaluation. Patient otherwise has no other questions or concerns. Surgery was recently postponed from 12/31 due to diagnosed with COVID. The risks and benefits have been discussed including, but not limited to, risk of infection, nerve injury, stiffness, loss of motion, failure to improve, etc. Reasonable outcomes and options of treatment were discussed. An explanation of appropriate alternatives to the procedure that may be advantageous were discussed and their risks and benefits, as well as the risks and benefits of not proceeding with treatment. I offered to answer any additional inquiries concerning the treatment involved. All the patient's questions were answered. The patient is agreeable, understanding of the treatment plan and alternatives, and wishes to proceed with the treatment plan. History of Present Illness Chief Complaint: right knee pain Primary Care Provider: Simran Herrera PA-C Fran is a 56 year old male who complains of Right knee pain, presents for pre-op evaluation prior to a right total knee replacement by Dr Gabriel at [facility]. He complains of pain and stiffness in his right knee. Currently the patient states that the symptoms are moderate-severe and rated as 6/10. The pain is described as aching and sharp. His symptoms are aggravated by ascending stairs, daily activities, first steps while awake walking. Prior NSAIDs include Mobic and IBU. He has been treated with previous cortisone and visco injections in the past without much relief. has history of right knee scope x 3 with h/o ACL reconstruction. Allergies Allergy/AdvReac Type Severity Reaction Status Date / Time No Known Allergies Allergy Verified 12/22/21 15:35 Home Medications Medication Instructions Recorded Confirmed Type allopurinol 300 mg tablet 300 mg PO QAM 02/21/21 12/22/21 History cyclobenzaprine 10 mg tablet 10 mg PO TID PRN Muscle Pain 02/21/21 12/22/21 History pantoprazole 40 mg tablet,delayed 40 mg PO BID 02/21/21 12/22/21 History release (Protonix) gabapentin 300 mg capsule 300 mg PO HS 12/22/21 12/22/21 History lisinopril 40 mg tablet 40 mg PO QAM 12/22/21 12/22/21 History montelukast 10 mg tablet 10 mg PO QPM 12/22/21 12/22/21 History Past Med/Surg History Medical History Chronic back pain Diverticulitis Hx/had colon resection GERD (gastroesophageal reflux disease) History of COVID-19 09/05/21>RUNNY NOSE ONLY *RESOLVED/HOME TEST HTN (hypertension) Hx of gout Hx of migraines Osteoarthritis Sleep apnea CPAP Surgical History History of colon resection History of esophagogastroduodenoscopy (EGD) History of nasal surgery septoplasty for deviated septum History of total knee replacement LEFT TKA Hx of appendectomy Hx of arthroscopy of left knee Hx of arthroscopy of right knee x 3 Hx of colonoscopy Hx of melanoma excision right side of ribs Hx of melanoma excision Hx of surgical amputation of finger index finger on left hand injury with saw Family History Mother Family history of reaction to anesthesia PONV Social History Smoking Status: Never smoker Second Hand Exposure: No; Do You Dip or Chew Tobacco: Yes (ADVISED NPO); Hx Alcohol Use: Yes Alcohol type: beer Hx Substance Use: Yes Preferred Language: Bulgarian Communication Ability: Effective Humane Officer Required: No Beliefs That Will Affect Care: None Current Living Situation: Spouse current occupational status: employed current occupation: [employer] Feels Safe at Home: Yes Safety Concerns: Feels Safe At This Time Assistive Devices: CPAP Review of Systems Constitutional: no fever, no chills and no sweats Respiratory: no cough and no dyspnea Cardiovascular: no chest pain, no dyspnea and no orthopnea Gastrointestinal: no abdominal pain, no nausea and no vomiting Musculoskeletal: as per Subjective / HPI Physical Exam Physical Exam: HT: 5ft 11in WT: 124.kg Constitutional: WD/WN, vitals as above no acute distress Respiratory: normal respiratory effort, lungs clear to auscultation no respiratory distress, no labored breathing and does not use accessory muscles Cardiovascular: RRR, no murmur, no edema Gastrointestinal (Abdomen): normal bowel sounds, soft, nontender, no hepatosplenomegaly Musculoskeletal: Knee: + knee abnormal to inspection (RIGHT KNEE), + effusion (+1 effusion), + limited ROM of knee (ROM 0/3/110), + knee ROM with crepitation, + joint line tenderness (medial joint line) and + Sapna's sign positive; no deformity, no skin erythema, no ecchymosis, no valgus laxity, no varus laxity, anterior drawer test negative, Harlan's sign negative and pivot shift test negative Results & Data Results & Data ([facility]) Diagnostic Findings Right Knee X-ray: Right knee series showing advanced degenerative changes to the right knee, narrowing of the medial compartment and patello-femoral joint with patellar spurring noted, findings showing joint space narrowing of the medial compartment and patello-femoral joint, osteophyte formation and subchondral sclerosis noted. overall varus alignment. 2 metallic screws from prior ACL reconstruction. no acute bony pathology noted.
[~2022-02-03 09:41] MED LIST changes: +EPINEPHrine INJ 1 MG/ML AMP ONE; +ROPIVACAINE 0.5% HCL/PF 150 MG, BUPIVACAINE 0.75% MPF 20 ML, EPINEPHrine 30MG/30ML (OR ... INFIL SCH; -ROPIVACAINE 0.5% HCL/PF 150 MG, BUPIVACAINE 0.75% MPF 20 ML, EPINEPHrine 30MG/30ML (OR ... INSTIL SCH; -oxyCODONE HCL 10 MG TABCR (OxyCONTIN) PO SCH
[2022-02-03] MEDS ORDERED: LACTATED RINGER'S 1,000 ML IV PRN (10:00)
[2022-02-03] MEDS ORDERED: fentaNYL citrate 100 MCG/2 ML VIAL ONE (10:17)
[2022-02-03] MEDS ORDERED: MIDAZOLAM HCL 1 MG/ML 2ML VIAL ONE ×3 (10:17→12:26)
[2022-02-03] MEDS ORDERED: LIDOCAINE 2% 2 ML VIAL/AMP(20MG/ML) INFIL ONE (10:27)
[2022-02-03] MEDS ORDERED: PROPOFOL IV EMULSION 10 MG/ML 20 ML VIAL IV ONE ×3 (10:27→13:36)
--- NOTE | 2022-02-03 10:53 | History & Physical Bridge Note ---
Date of Service February 03, 2022 History & Physical Bridge Note I have examined the patient, reviewed the History & Physical and in the interval since the performance of the History & Physical I have noted the following changes of clinical significance: no changes noted
[2022-02-03] MEDS ORDERED: PROMETHAZINE HCL 12.5 MG in SODIUM CHLORIDE 0.9% 50 ML IV PRN (11:46)
[2022-02-03] MEDS ORDERED: NALOXONE HCL 0.4 MG/1 ML VIAL/CARP IV PRN ×2 (11:46→16:08)
[2022-02-03] MEDS ORDERED: ePHEDrine sulfate 50 MG/ML AMP IV PRN (11:46)
[2022-02-03] MEDS ORDERED: FLUMAZENIL 0.1 MG/1 ML 10 ML VIAL IV PRN (11:46)
[2022-02-03] MEDS ORDERED: fentaNYL citrate 100 MCG/2 ML VIAL IV PRN (11:46)
[2022-02-03] MEDS ORDERED: LABETALOL HCL IV 5 MG/ML 20ML IV PRN (11:46)
[2022-02-03] MEDS ORDERED: ATROPINE SULFATE 0.1 MG/ML 10ML SYR IV PRN (11:46)
[2022-02-03] MEDS ORDERED: ONDANSETRON INJ 2 MG/ML 2 ML VIAL IV PRN ×2 (11:46→16:08)
[2022-02-03] MEDS ORDERED: HYDROmorphone INJ 1 MG/ML SYRINGE IV PRN ×2 (11:46→16:08)
[2022-02-03] MEDS ORDERED: ORTHO JOINT ANESTHETIC ONE (11:56)
[2022-02-03] MEDS ORDERED: ONDANSETRON INJ 2 MG/ML 2 ML VIAL ONE (12:50)
--- NOTE | 2022-02-03 14:06 | Operative Report ---
Post Operative Report Pre & Post Diagnosis Operation Date: 02/03/22 11:55 Pre-Op Diagnosis: Unilateral Primary Osteoarthritis with retained ACL screws tibia and femur, Right Knee Post-Op Diagnosis: Unilateral Primary Osteoarthritis with retained ACL screws tibia and femur, Right Knee I identified the patient and participated in the time-out.: Yes Procedure Utilizing [employer] persona long block total knee arthroplasty size femur 12 standard tibia H with a 30 mm stem polythirteen patella 34 oval and removal of tibial ACL interference screw Operation Date: 02/03/22 11:55 Actual Procedures p Right Total Knee Arthroplasty(Right) - Shashank Gabriel DO Surgeon Shashank Gabriel DO Data Entry Processor THO Ardon Estimated Blood Loss 10 Findings Consistent with Post-Op Diagnosis Patient presents with severe end-stage DJD status post previous ACL reconstruction with [id number] varus alignment subchondral cystic changes marginal osteophyte retained ACL interference screws subchondral sclerosis and large large effusion Specimens Bone cartilage ACL interference screw Drains Medium bore Hemovac Anesthesia Type MAC Spinal Regional Complications none Disposition Accompanied Patient To Recovery: No Disposition: Recovery Room Indications Patient presents with severe end-stage tricompartmental DJD had undergone years back ACL reconstruction gone on the progress of the degenerative joint disease with varus alignment subchondral sclerosis patient failed times a corticosteroid injection viscosupplementation relative rest the above intraoperative findings were noted Description of Procedure After proper prepping and draping of the Right lower extremity anterior midline incision was made over the region of the extensor extensor mechanism after meticulous hemostasis was obtained and maintained in subcutaneous tissues a medial parapatellar incision was made The patella was subluxed lateralward the medial lateral gutter were cleaned from any hypertrophic synovitis and scar tissue of the distal femoral block was placed and the distal femoral osteotomy cut was made subsequently the chamfers anterior and posterior osteotomy cuts were made utilizing the 4-in-1 block the tibia was subsequently subluxed anteriorward medial and ateral meniscal remnants were excised in their entirety remnants of the anterior and posterior cruciate ligaments were excised in their entirety excellent exposure of the proximal tibia was obtained the tibial osteotomy guide was placed on the proximal tibial osteotomy cut was made once again the knee was irrigated with copious amounts of sterile saline solution the patella was subsequently everted lateralward thickened scar tissue around the p atella was removed the patella was subsequently cut utilizing a freehand technique and was drilled prepared for final preparation and placement of patella socially flexion-extension gaps were checked and the equal and symmetric trials were placed to the appropriate femoral and tibial trials were placed with polyspacer after removal of the tibial interference screw which was interfering with the stem of the tibial implant a short stemmed implant was usedDue to the complex nature of the procedure, the entire surgery was performed with the operational assistance of THO Ardon. The medical assistant cardiology, under direct supervision, was involved in the actual performance of all aspects of the surgical procedure including hemostasis, tissue retraction and incision, instrument management, patient positioning, and wound closure.Due to the complex nature of the procedure, the entire surgery was performed with the operational assistance of THO Ardon. The medical assistant cardiology, under direct supervision, was involved in the actual performance of all aspects of the surgical procedure including hemostasis, tissue retraction and incision, instrument management, patient positioning, and wound closure. with poly-spacer being placed for equal flexion and extension gaps and full range of motion including extension to 0 and flexion to 140 the trial components after having been taken to recovery range of motion was subsequently removed meticulous hemostasis was obtained and maintained subsequently a knee block injection of joint cocktail including ropivacaine 0.5% 150 mg. Bupivacaine 0.5% epinephrine 1-200,030 mL's toradol 30 mg dexamethasone 4 mg ketamine 10 mg clonidine 100 micrograms normal saline solution 30 mg was infiltrated into the soft tissues of the posterior knee medial lateral gutters and periosteal synovium special attention was paid to protect neurovascular structures at all times subsequently trial components having been removed the knee was irrigated with sterile saline solution. debris was removed the proximal tibia was subsequently prepared and was made ready for the placement of the tibial component tibial component was also cemented and tamped into position the femoral component was subsequently placed and cemented in the position the patellar component was subsequently cemented in position because hemostasis once again obtained and maintained wound having been thoroughly irrigated with debridement and debridement lavage was performed as well as a medial parapatellar incision closed with #1 Vicryl in interrupted fashion subcutaneous was closed with #2 Vicryl skin was closed with skin clips. PA-C was necessary for prepping and drapping as well as wound closure of deep fascia Sub cutaneous tissue and skin and was necessary for the case. A sterile compressive dressing was placed patient was taken to recovery in stable condition of report dictated by Harvey I attest to the content of the Intraoperative Record and any orders documented therein. Any exceptions are noted below. I attest to the content of the Intraoperative Record and any orders documented therein. Any exceptions are noted below.
--- NOTE | 2022-02-03 15:08 | Anesthesiology Progress Note ---
Date of Service February 03, 2022 Anesthesia Post Procedure Vital Signs Vital Signs: Temp Pulse Pulse Resp BP Pulse Ox O2 Del Method 02/03/22 14:33 36.5 C 94 H 16 130/68 97 Oxymask 02/03/22 10:12 36.8 C 82 18 173/99 H 98 Room Air O2 Flow Rate 02/03/22 14:33 4 02/03/22 10:12 Pain Intensity Right Knee: Pain Intensity: 1 Transfer of Care Handoff Completed per policy Notes Mental Status: alert / awake / arousable Patient Amnestic to Procedure: Yes Nausea / Vomiting: adequately controlled Pain: adequately controlled Airway Patency, RR, SpO2: stable & adequate BP & HR: stable & adequate Hydration State: stable & adequate Neuraxial Anesthesia: was administered and sensory block is resolving Anesthetic Complications: no major complications apparent and Pt Satisfied with anesthetic care
--- NOTE | 2022-02-03 15:11 | XRay Report ---
RIGHT KNEE 2 VIEWS History: Right total knee arthroplasty. Degenerative arthritis. Postop. FINDINGS: The patient is status post a right total knee arthroplasty. The hardware is intact. No frac ture or dislocation. Surgical drains are in place. IMPRESSION: Right total knee arthroplasty. No evidence for hardware complication. ACT 112: Negative or not required by law. Electronically signed by: Nathaniel Aguilar M.D. 02/03/2022 3:10 PM
[2022-02-03] MEDS ORDERED: CYCLOBENZAPRINE HCL 10 MG TAB PO PRN (16:08)
[2022-02-03] MEDS ORDERED: bisacodyL 10 MG SUPP PR PRN (16:08)
[2022-02-03] MEDS ORDERED: METOCLOPRAMIDE HCL INJ 5 MG/ML 2 ML VIAL IV PRN (16:08)
[2022-02-03] MEDS ORDERED: diphenhydrAMINE Capsule 25 MG CAP PO PRN (16:08)
[2022-02-03] MEDS ORDERED: MAGNESIUM HYDROXIDE SUSP 30 ML UDC PO PRN (16:08)
[2022-02-03] MEDS ORDERED: SODIUM CHLORIDE 0.9% 1000ML 1,000 ML IV SCH (16:08)
[2022-02-03] MEDS: KETOROLAC TROMETHAMINE 15 MG/ML VIAL IV SCH ×2 (16:37→22:59)
[2022-02-03] MEDS: oxyCODONE HCL IR 5 MG TAB (IMMEDIATE RELEASE) PO PRN (19:53)
[2022-02-03] MEDS: ceFAZolin 2000MG 2,000 MG/15 ML SYR IV SCH (20:50)
[2022-02-03] MEDS: ASPIRIN 81 MG ECTAB PO SCH (20:56)
[2022-02-03] MEDS: DOCUSATE SODIUM 100 MG CAP PO SCH (20:57)
[2022-02-03] MEDS: CeleBREX 200 MG CAP PO SCH (20:58)
[2022-02-03] MEDS: ACETAMINOPHEN 500 MG TAB PO SCH (21:00)
[2022-02-03] MEDS ORDERED: MONTELUKAST SODIUM 10 MG TABLET PO SCH (21:00)
[2022-02-03] MEDS ORDERED: GABAPENTIN 300 MG CAP PO SCH (21:00)
[2022-02-03] MEDS ORDERED: SENNA 8.6 MG TAB PO SCH (21:00)
[2022-02-04] MEDS ORDERED: Nursing to Pharmacy Communication SCH (01:00)
[2022-02-04] MEDS: ceFAZolin 2000MG 2,000 MG/15 ML SYR IV SCH (04:36)
[2022-02-04] MEDS: KETOROLAC TROMETHAMINE 15 MG/ML VIAL IV SCH ×2 (04:37→09:16)
[2022-02-04] MEDS: ACETAMINOPHEN 500 MG TAB PO SCH ×2 (05:41→14:47)
[2022-02-04] MEDS: oxyCODONE HCL IR 5 MG TAB (IMMEDIATE RELEASE) PO PRN ×2 (05:42→12:26)
[2022-02-04 07:26] LABS: Hematocrit (blood only) 32.3 % (40.1-51.0); Hemoglobin 10.9 g/dl (14.0-18.0); Mean Corpuscular Hemoglobin 29.7 pg (25.0-34.0); Mean Corpuscular Hgb Conc 33.7 g/dL (32.0-36.0); Mean Platelet Volume 10.1 fL (9.4-12.4); Platelet Count 246 K/uL (130-400); RDW Coefficient of Variation 13.6 % (11.5-14.5); RDW Standard Deviation 44.1 fL (36.4-46.3); Red Blood Count 3.67 M/uL (4.63-6.08); White Blood Count 14.13 K/ul (4.8-10.8)
[2022-02-04 07:48] LABS: BUN Creatinine Ratio 15.2 (10-20); Calcium 8.8 mg/dl (8.5-10.1); Creatinine Clr Calc Pharmacy 109.8 ml/min; Est GFR (African American) 97.6 ml/min; Est GFR (Non-African American) 84.2 ml/min; Potassium 4.4 mmol/L (3.5-5.1)
--- NOTE | 2022-02-04 08:35 | Orthopedic Progress Note ---
Date of Service February 04, 2022 Assessment & Plan (1) Arthritis of right knee: Plan: Postop day 1 status post right total knee arthroplasty. PT/OT protocols. Weightbearing as tolerated. DVT prophylaxis-aspirin p.o. twice daily, Laurie, YUKI ahn. Pain management as written. Leukocytosis-patient currently asymptomatic. Likely secondary to surgical stress and/or preoperative steroids. DC planning-patient is planning for home health services upon discharge. We will see how he progresses with his physical therapy today. If he is progressing well and pain remains controlled, possibility of discharge to home today. Admission and Anticipated Discharge Date Admission Date: February 03, 2022 Subjective Postop day 1 Patient sitting up in bed awake and alert. Waiting for his breakfast. No complaints this morning. He stated he had some discomfort last night around the operative knee itself and in the the anterior thigh just above the knee but is much better this morning. Denies shortness of breath, chest pain, lightheadedness. Physical Exam Physical Exam: Dressings are clean, dry, and intact. Calves are soft and nontender. Neurovascular is intact. Toes are mobile. He has good dorsiflexion and plantarflexion of the right foot. Hemovac drainage was 375 mL from the previous shift. Results & Data ([facility]) Vital Signs (Past 12 Hours) Vital Signs Temp Pulse Resp BP Pulse Ox O2 Del Method 02/04/22 07:19 36.4 C L 88 14 137/82 97 02/04/22 05:00 36.9 C 83 18 127/76 96 Room Air 02/03/22 23:32 37.3 C 103 H 18 151/95 H 96 Room Air Laboratory Results Laboratory Results WBC 14.13 K/ul (4.8-10.8) H 02/04/22 06:57 RBC 3.67 M/uL (4.63-6.08) L 02/04/22 06:57 Hgb 10.9 g/dl (14.0-18.0) L 02/04/22 06:57 Hct 32.3 % (40.1-51.0) L 02/04/22 06:57 MCV 88.0 fL (80.0-100.0) 02/04/22 06:57 MCH 29.7 pg (25.0-34.0) 02/04/22 06:57 MCHC 33.7 g/dL (32.0-36.0) 02/04/22 06:57 RDW Std Deviation 44.1 fL (36.4-46.3) 02/04/22 06:57 RDW Coeff of Abdoulaye 13.6 % (11.5-14.5) 02/04/22 06:57 Plt Count 246 K/uL (130-400) 02/04/22 06:57 MPV 10.1 fL (9.4-12.4) 02/04/22 06:57 Sodium 135 mmol/L (136-145) L 02/04/22 06:57 Potassium 4.4 mmol/L (3.5-5.1) 02/04/22 06:57 Chloride 99 mmol/L (98-107) 02/04/22 06:57 Carbon Dioxide 25 mmol/L (21-32) 02/04/22 06:57 Anion Gap 11 (3-11) 02/04/22 06:57 BUN 15 mg/dl (6-23) 02/04/22 06:57 Creatinine 0.99 mg/dl (0.6-1.4) 02/04/22 06:57 Est Cr Clr Drug Dosing 109.8 ml/min 02/04/22 06:57 Est GFR ( Amer) 97.6 ml/min 02/04/22 06:57 Est GFR (Non-Af Amer) 84.2 ml/min 02/04/22 06:57 BUN/Creatinine Ratio 15.2 (10-20) 02/04/22 06:57 Glucose 156 mg/dl (70-99(Fasting)) H 02/04/22 06:57 Calcium 8.8 mg/dl (8.5-10.1) 02/04/22 06:57 SARS-CoV-2, RNA, NAAT NEGATIVE (NEGATIVE) 02/03/22 09:45 Blood Type B Positive 02/03/22 10:04 Antibody Screen NEGATIVE 02/03/22 10:04 Impressions Knee X-Ray 02/03/22 14:37 RIGHT KNEE 2 VIEWS History: Right total knee arthroplasty. Degenerative arthritis. Postop. FINDINGS: The patient is status post a right total knee arthroplasty. The hardware is intact. No fracture or dislocation. Surgical drains are in place. IMPRESSION: Right total knee arthroplasty. No evidence for hardware complication. ACT 112: Negative or not required by law. Electronically signed by: Nathaniel Aguilar M.D. 02/03/2022 3:10 PM
[2022-02-04] MEDS ORDERED: allopurinoL 300 MG TAB PO SCH (09:00)
[2022-02-04] MEDS ORDERED: lisinopril 40 MG TAB PO SCH (09:00)
[2022-02-04] MEDS ORDERED: MULTIVITAMIN TAB PO SCH (09:00)
[2022-02-04] MEDS: CeleBREX 200 MG CAP PO SCH (09:16)
[2022-02-04] MEDS: DOCUSATE SODIUM 100 MG CAP PO SCH (09:16)
[2022-02-04] MEDS: ASPIRIN 81 MG ECTAB PO SCH (09:16)
--- NOTE | 2022-02-05 14:05 | Discharge Summary ---
Date of Service date of surgery: February 04, 2022 date of admission: 02-03-22 Admission HPI Per Admitting Provider Fran is a 56 year old male who complains of Right knee pain, presents for pre- op evaluation prior to a right total knee replacement by Dr Gabriel at [facility]. He complains of pain and stiffness in his right knee. Currently the patient states that the symptoms are moderate-severe and rated as 6/10. The pain is described as aching and sharp. His symptoms are aggravated by ascending stairs, daily activities, first steps while awake walking. Prior NSAIDs include Mobic and IBU. He has been treated with previous cortisone and visco injections in the past without much relief. has history of right knee scope x 3 with h/o ACL reconstruction. Principal Diagnosis right knee arthritis Discharge Exam Musculoskeletal Right Knee: NVDI, calf SNT, negative jazzy sign. DP palpable, able to wiggle toes/ankle movement without difficulty. DONNA dressing clean dry and intact. expected post-operative bruising noted. Discharge Data Allergies Allergy/AdvReac Type Severity Reaction Status Date / Time No Known Allergies Allergy Verified 02/03/22 10:07 Procedures Performed Operation Date: 02/03/22 11:55 Actual Procedures p Right Total Knee Arthroplasty(Right) - Shashank Gabriel DO Ordered Studies 02/03/22 05:00 US - OR guided needle placemen Routine Hospital Course (1) Arthritis of right knee: Postop day 1 status post right total knee arthroplasty. PT/OT protocols. Weightbearing as tolerated. DVT prophylaxis-aspirin p.o. twice daily, SCDs, YUKI ahn. Pain management as written. Leukocytosis-patient currently asymptomatic. Likely secondary to surgical stres s and/or preoperative steroids. DC planning-patient is planning for home health services upon discharge. We will see how he progresses with his physical therapy today. If he is progressing well and pain remains controlled, possibility of discharge to home today. Total Time Total Time Spent Total Time Spent (In Minutes): 20 Discharge Plan Discharge Items Patient Disposition: Home - Home Health Services Reason For Visit: POST OP TKA Discharge Diagnosis: RIGHT TKA Activity: Per Instructions section Non-emergency contact: Surgeon Call non-emergency contact if: you have any medication questions, your temperature is above 101, your wound has increased redness, your wound has increased drainage and your wound pain has increased Follow-up/Referrals: Shashank Gabriel DO [Surgeon] - (Follow-up with Dr. Gabriel in 2 weeks from the day of your surgery for your first postoperative visit.) Simran Herrera PA-C [Primary Care Provider] - Diet: Regular Addtl Attending Provider Instructions: ACTIVITY RECOMMENDATIONS: SELF CARE INSTRUCTIONS AFTER TOTAL KNEE REPLACEMENT A. You may need to continue a physical therapy program after discharge from the hospital. There are several options available to you. Your doctor will assist you in selecting the best one for you. 1. An out-patient facility 2 to 3 times a week for therapy or home therapy. 2. Continue working on all exercises taught to you in the hospital. Your goals should be to increase bending of your knee to 90 degrees and beyond and to fully straighten your knee. B. You may progress at your own pace from walking with a walker or crutches to a cane; then to no assistive devices. C. Make walking a part of your daily routine. Be up as much as comfortable with rest periods throughout the day. Rest with leg elevation is very important. Use the ice wrap frequently for the first 3-4 weeks. D. There are no restrictions on activities. 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 E. Wear the long elastic stockings (YUKI hose) 20 hours a day for 2 weeks after surgery. They can be removed several times a day for laundering and for a bath. F. You may shower, no tub baths until cleared by your doctor. SPECIAL CARE INSTRUCTIONS: VERY IMPORTANT TO READ AND REVIEW A. There are a few signs you need to watch for after you are home. Call [facility] if you notice any of the followin. Increased severe knee pain. Some pain is expected especially when you exercise. 2. Increased swelling in your leg or knee; pain or swelling of the calf muscle in either lower leg. 3. Any fluid drainage from the incision. 4. Shortness of breath or chest pain. B. Please call [facility] at if you have any concerns or questions about your operation or recovery. The doctor or his nurse will return your call promptly. C. You must take antibiotics before dental work, bladder, bowel or other surgery. Your doctor will provide you with a permanent care to carry describing this precaution. IMPORTANT: * REMEMBER TO TAKE ASPIRIN, 81 MG, TWICE DAILY FOR 4 WEEKS UNLESS OTHERWISE DIRECTED. THIS IS YOUR BLOOD THINNER. * HIGH RISK PATIENTS MAY BE PRESCRIBED A STRONGER BLOOD THINNER. THIS WILL BE PROVIDED AT DISCHARGE. * CALL IF INCREASED PAIN, REDNESS, DRAINAGE OR FEVER GREATER THAT 101. * WEAR YUKI HOSE 20 HOURS PER DAY FOR 2 WEEKS. * DONNA Dressing- This is a large suction dressing covering your incision. This will help pull any excess drainage from the wound and allow your incision to heal properly. You may shower with this if you can keep the unit outside of the shower. If any bleeding or leakage is noted please call your doctor's office. This will remain on your incision for 7 days and then should be removed. This can be done yourself or by the home nursing staff if applicable. The entire unit is disposable once removed. Once removed, keep incision clean and dry. If redness or drainage is noted, please call your surgeon. ONCE DONNA IS REMOVED, FOLLOW THESE INSTRUCTIONS: DERMABOND Prineo- This is a mesh tape dressing that is covered with glue. It should remain in place until the incision is properly healed, usually 10-14 days. This dressing is designed to naturally slough off. You may trim the excess mesh tape as it peels off. Incision may be briefly wet in a shower. Dry immediately by blotting with a clean, dry towel. Do not bath or swim until instructed by your doctor. Do not scratch, rub, or pick at the dressing. Do not apply any topical ointments or lotions until dressing is completely removed and/or instructed by your doctor. There may be a small piece of suture material at one end of your incision. Do not pull or trim this. If it is bothersome or catching on clothing, you may cover it with a band-aid. IF INCISION IS LEAKING THROUGH DRESSING, CALL THE OFFICE . FOLLOW UP VISIT: If appointment is not already scheduled: Please call [facility] to make a follow-up appointment for 2 weeks after your surgery at . Stand-Alone Forms: My [facility] Medications and DC Order Prescriptions: New acetaminophen [Tylenol Extra Strength] 500 mg Tablet 1,000 mg PO Q8 14 Days Qty: 84 0RF celecoxib [Celebrex] 200 mg Capsule 200 mg PO BID 14 Days Qty: 28 0RF cefadroxil 500 mg capsule 500 mg PO BID Qty: 28 1RF oxycodone 5 mg tablet 5 mg PO Q4H MDD 6 PRN (Reason: pain) Qty: 30 0RF polyethylene glycol 3350 [Miralax] 17 gram powder in packet 17 g PO DAILY PRN (Reason: constipation) Qty: 5 0RF Continued cyclobenzaprine 10 mg Tablet 10 mg PO TID PRN (Reason: Muscle Pain) pantoprazole [Protonix] 40 mg Tablet,Delayed Release (Dr/Ec) 40 mg PO BID allopurinol 300 mg Tablet 300 mg PO QAM gabapentin 300 mg Capsule 300 mg PO HS montelukast 10 mg Tablet 10 mg PO QPM Rx Instructions: start after surgery lisinopril 40 mg Tablet 40 mg PO QAM Discharge Orders: Discharge Order (Routine); Ordered 02/04/22 Ordered By: Enrrique Brush/Other Patient Handouts: Total Knee Replacement Admission Data Admit Date/Time: 02/03/22 14:37 Attending Provider: Shashank Gabriel Admit Provider: Shashank Gabriel Primary Care Provider: Simran Herrera Other Providers: [facility],Home Health Other Interventions: Discharge Summary Assessment (RN) Last Done: 02/04/22 12:57
== END 2022-02-04 16:33 | disposition home health service (06) | DRG 470 ==
LOC: 3W 09:41 → ASU 09:41 → OBSVTOIN 14:37